=== PATIENT | male | born 1970 | race African-American/Black ===

== ENCOUNTER 2018-06-07 16:17 | Emergency (ER) | payer BC ==
[2018-06-07 17:44] LABS: Absolute Monocytes 0.6 K/uL (0.1-1.3); Absolute Neutrophil 5.8 K/uL (1.8-8.0); Basophils % 0.7 % (0-1.3); Eosinophils % 0.2 % (0-4.4); Hematocrit 45.9 % (39.6-49.0); Lymphocytes % 23.4 % (15.3-44.8); MPV 9.2 fL (7.6-11.3); Monocytes % 7.3 % (3.3-12.3); RBC Red Blood Cell Count 5.47 M/uL (4.33-5.43)
--- NOTE | 2018-06-07 17:51 | RAD REPORT ---
EXAM DESCRIPTION: CT - Stone Protocol - 06/07/2018 5:39 pm CLINICAL HISTORY: Left flank pain COMPARISON: None. TECHNIQUE: Axial 5 mm thick images were obtained without oral or IV contrast. The [id number] span s the entirety of the system partially obscuring uppermost abdomen and lung bases. All CT scans are performed using dose optimization technique as appropriate and may include automated exposure control or mA/KV adjustment according to patient size. FINDINGS: Mild left-sided hydronephrosis is present secondary to a 6 mm stone distal left ureter. St one is approximately 3- 4 cm from the UVJ. Stranding surrounds the left ureter. There is stranding an d edema in the left perinephric fat. No other calculi on the left. No right-sided stone or hydronephr osis. No suspicious renal masses. Isodense masses and pyelonephritis are not excluded on a stone prot ocol CT scan. No urinary bladder suspicious finding. No significant adrenal finding. Imaged portions of the liver, spleen and pancreas show no suspicious findings on non-contrast imaging . No gallbladder or biliary tree abnormality identified. No suspicious bowel findings. No hernia, mass or bulky lymphadenopathy noted. No free air, free fluid or inflammatory stranding. Disc and bony degenerative changes are present. IMPRESSION: Mild hydronephrosis on the left secondary to a 6 mm stone that is 3- 4 cm from the UVJ. Isodense masses and pyelonephritis are not excluded on stone protocol technique.
[2018-06-07 18:06] LABS: Urine Blood 3+ (NEG); Urine Glucose 2+ (NEG); Urine Protein 1+ (NEG); Urine Specific Gravity 1.015 (1.005-1.030); Urine pH 5.5 (5.0-7.0)
[2018-06-07 18:09] LABS: Albumin 3.3 g/dL (3.4-5.0); Bilirubin Direct 0.2 mg/dL (0-0.2); Bilirubin Total 0.7 mg/dL (0.2-1.0); Potassium 4.4 mmol/L (3.5-5.1); Protein, Total 8.6 g/dL (6.4-8.2)
[2018-06-07] MEDS ORDERED: KETOROLAC 30 MG/ML INJ ONE (18:11)
[2018-06-07] MEDS ORDERED: TAMSULOSIN 0.4 MG SR CAP ONE (18:11)
[2018-06-07] MEDS ORDERED: NA CHLORIDE 0.9% 500 ML ONE (18:12)
--- NOTE | 2018-06-07 19:01 | ER ---
Nurse's Notes [facility] Name: Duane Warren Age: 47 yrs Sex: Male : 1970 Arrival Date: 06/07/2018 Time: 16:19 Bed 18 Private MD: Diagnosis: Hyperglycemia, unspecified;Ureterolithiasis Presentation: 06/07 16:32 Presenting complaint: Left flank pain x 2 days. Also reports urinary frequency and hb difficulty urinating x 1 month. Transition of care: patient was not received from another setting of care. Onset of symptoms was June 06, 2018. Risk Assessment: Do you want to hurt yourself or someone else? Patient reports no desire to harm self or others. Care prior to arrival: None. 16:32 Method Of Arrival: Ambulatory hb 16:32 Acuity: JULIA 3 hb Historical: - Allergies: 16:34 No Known Allergies; hb - Home Meds: 16:34 None [Active]; hb - PMHx: 16:34 Hypertension; hb - PSHx: 16:34 None; hb - Immunization history:: Adult Immunizations up to date. - Social history:: Smoking status: Patient/guardian denies using tobacco. - Ebola Screening: : No symptoms or risks identified at this time. - Family history:: not pertinent. - Hospitalizations: : No recent hospitalization is reported. Screenin:38 Abuse screen: Denies threats or abuse. Nutritional screening: No deficits noted. em Tuberculosis screening: No symptoms or risk factors identified. Fall Risk None identified. Assessment: 17:30 General: Appears in no apparent distress. comfortable, Behavior is calm, cooperative, em Denies fever. Pain: Complains of pain in posterior aspect of left lateral abdomen Pain currently is 6 out of 10 on a pain scale. Neuro: Level of Consciousness is awake, alert, obeys commands, Oriented to person, place, time, situation. Respiratory: Airway is patent Respiratory effort is even, unlabored, Respiratory pattern is regular, symmetrical. GI: Abdomen is obese, Bowel sounds present X 4 quads. Abd is soft and non tender X 4 quads. Patient currently denies nausea, vomiting. : Urine is clear, Reports burning with urination, incontinence, urinary frequency. Derm: Skin is intact, is healthy with good turgor, Skin is pink, warm \T\ dry. normal. Musculoskeletal: Range of motion: intact in all extremities. 17:40 Reassessment: I agree with previous assessment. hb 18:59 Reassessment: Patient appears in no apparent distress at this time. Patient and/or em family updated on plan of care and expected duration. Pain level reassessed. Patient is alert, oriented x 3, equal unlabored respirations, skin warm/dry/pink. Patient states feeling better. Patient states symptoms have improved. Vital Signs: 16:33 BP 170 / 91; Pulse 88; Resp 16; Temp 99.4(O); Pulse Ox 100% on R/A; Pain 7/10; hb 18:07 BP 160 / 65; Pulse 104; Resp 18; Pulse Ox 100% on R/A; em 18:59 BP 155 / 90; Pulse 97; Resp 18; Pulse Ox 99% on R/A; em ED Course: 16:19 Patient arrived in ED. as 16:33 Triage completed. hb 16:34 Arm band placed on. hb 16:52 Antonio Doss LVN is Primary Nurse. em 17:12 Arnel Gonzalez MD is Attending Physician. rn 17:[address] via wheelchair. kw1 17:30 Initial lab(s) drawn, by me, sent to lab. Inserted saline lock: 20 gauge in right em antecubital area, using aseptic technique. Blood collected. 17:38 Patient has correct armband on for positive identification. Bed in low position. Call em light in reach. Adult w/ patient. Pulse ox on. NIBP on. 17:39 CT Stone Protocol In Process Unspecified. EDMS 19:00 Bonilla Hernandez MD is Referral Physician. rn 19:00 Matt Liz DO is Referral Physician. rn 19:15 No provider procedures requiring assistance completed. IV discontinued, intact, em bleeding controlled, No redness/swelling at site. Pressure dressing applied. Administered Medications: 18:11 Drug: NS 0.9% 500 ml Route: IV; Rate: bolus; Site: right antecubital; em 19:15 Follow up: IV Status: Completed infusion; IV Intake: 500ml em 18:11 Drug: Flomax 0.4 mg Route: PO; em 19:15 Follow up: Response: No adverse reaction; Pain is decreased em 18:13 Drug: TORadol 30 mg Route: IVP; Site: right antecubital; hb 19:15 Follow up: Response: No adverse reaction; Pain is decreased em Intake: 19:15 IV: 500ml; Total: 500ml. em Outcome: 19:00 Discharge ordered by . rn 19:15 Discharged to home ambulatory, with family. em 19:15 Condition: good 19:15 Discharge instructions given to patient, family, Instructed on discharge instructions, follow up and referral plans. medication usage, Demonstrated understanding of instructions, follow-up care, medications, Prescriptions given X 3. 19:16 Patient left the ED. em Signatures: Dispatcher [employer] EDAntonio Mari, LABEL REWINDER LABEL REWINDER Marie Leggett Roman, MD MD rn Baxter, Heather, RN RN hb Wilhelm, Kimberly kw1
--- NOTE | 2018-06-07 19:01 | EDPHYS ---
Physician Documentation [facility] Name: Duane Warren Age: 47 yrs Sex: Male : 1970 Arrival Date: 06/07/2018 Time: 16:19 Bed 18 Private MD: ED Physician Arnel Gonzalez HPI: 06/07 17:29 This 47 yrs old Black Male presents to ER via Ambulatory with complaints of Abdominal rn Pain, Urinary Problem. 17:29 The patient presents with abdominal pain left flank pain, began yesterday, also reports rn increased urination/urgency, no hematuria. NO fever. NO vomiting/diarrhea. no current abd pain. Onset: The symptoms/episode began/occurred yesterday. The symptoms do not radiate. Associated signs and symptoms: Pertinent positives: dysuria, Pertinent negatives: blood in stools, fever, hematuria, shortness of breath, testicular pain, vomiting, vomiting blood. Severity of pain: At its worst the pain was mild in the emergency department the pain is unchanged. The patient has not experienced similar symptoms in the past. The patient has not recently seen a physician. Historical: - Allergies: 16:34 No Known Allergies; hb - Home Meds: 16:34 None [Active]; hb - PMHx: 16:34 Hypertension; hb - PSHx: 16:34 None; hb - Immunization history:: Adult Immunizations up to date. - Social history:: Smoking status: Patient/guardian denies using tobacco. - Ebola Screening: : No symptoms or risks identified at this time. - Family history:: not pertinent. - Hospitalizations: : No recent hospitalization is reported. ROS: 17:29 Constitutional: Negative for fever, chills, and weight loss, Eyes: Negative for injury, rn pain, redness, and discharge, Neck: Negative for injury, pain, and swelling, Cardiovascular: Negative for chest pain, palpitations, and edema, Respiratory: Negative for shortness of breath, cough, wheezing, and pleuritic chest pain, Abdomen/GI: + left flank pain : + increased frequency and dysuria MS/Extremity: Negative for injury and deformity, Skin: Negative for injury, rash, and discoloration, Neuro: Negative for headache, weakness, numbness, tingling, and seizure. Exam: 17:29 Constitutional: Overweight male, no acute distress Head/Face: Normocephalic, rn atraumatic. ENT: MMM Abdomen/GI: soft, non-tender Back: No spinal tenderness. No costovertebral tenderness. Full range of motion. Skin: Warm, dry with normal turgor. Normal color with no rashes, no lesions, and no evidence of cellulitis. MS/ Extremity: Pulses equal, no cyanosis. Neurovascular intact. Full, normal range of motion. Equal circumference. Neuro: Awake and alert, GCS 15, oriented to person, place, time, and situation. Cranial nerves II-XII grossly intact. Motor strength 5/5 in all extremities. Sensory grossly intact. Cerebellar exam normal. Normal gait. Vital Signs: 16:33 BP 170 / 91; Pulse 88; Resp 16; Temp 99.4(O); Pulse Ox 100% on R/A; Pain 7/10; hb 18:07 BP 160 / 65; Pulse 104; Resp 18; Pulse Ox 100% on R/A; em 18:59 BP 155 / 90; Pulse 97; Resp 18; Pulse Ox 99% on R/A; em MDM: 17:12 Patient medically screened. rn 18:57 Differential diagnosis: Ureterolithiasis, urinary tract infection. Data reviewed: vital rn signs, nurses notes, lab test result(s), radiologic studies, CT scan, and as a result, I will discharge patient. Counseling: I had a detailed discussion with the patient and/or guardian regarding: the historical points, exam findings, and any diagnostic results supporting the discharge/admit diagnosis, lab results, radiology results, the need for outpatient follow up, to return to the emergency department if symptoms worsen or persist or if there are any questions or concerns that arise at home. Special discussion: I discussed with the patient/guardian in detail that at this point there is no indication for admission to the hospital. It is understood, however, that if the symptoms persist or worsen the patient needs to return immediately for re-evaluation. Based on the history and exam findings, there is no indication for further emergent testing or inpatient evaluation. I discussed with the patient/guardian the need to see the primary care provider for further evaluation of the symptoms. I discussed with the patient/guardian the need to see the urologist for further evaluation of the symptoms. 18:59 ED course: Pt asymptomatic, will dc home with flomax, pain meds, continuation of bp rn meds, and needs pcp f/u for likely diabetic management and renal management.. 06/07 17:25 Order name: Basic Metabolic Panel; Complete Time: 18:13 rn 06/07 17:25 Order name: CBC with Diff; Complete Time: 17:54 rn 06/07 17:25 Order name: Hepatic Function; Complete Time: 18:13 rn 06/07 17:25 Order name: Lipase; Complete Time: 18:13 rn 06/07 17:25 Order name: Urine Microscopic Only rn 06/07 17:59 Order name: Urine Dipstick--Ancillary (enter results); Complete Time: 18:13 eb 06/07 17:25 Order name: IV Start; Complete Time: 17:38 rn 06/07 17:25 Order name: Labs collected and sent; Complete Time: 17:38 rn 06/07 17:25 Order name: Urine Dipstick-Ancillary (obtain specimen); Complete Time: 17:54 rn 06/07 17:25 Order name: CT Stone Protocol; Complete Time: 17:54 rn Administered Medications: 18:11 Drug: NS 0.9% 500 ml Route: IV; Rate: bolus; Site: right antecubital; em 19:15 Follow up: IV Status: Completed infusion; IV Intake: 500ml em 18:11 Drug: Flomax 0.4 mg Route: PO; em 19:15 Follow up: Response: No adverse reaction; Pain is decreased em 18:13 Drug: TORadol 30 mg Route: IVP; Site: right antecubital; hb 19:15 Follow up: Response: No adverse reaction; Pain is decreased em Disposition: 06/07/18 19:00 Discharged to Home. Impression: Hyperglycemia, unspecified, Ureterolithiasis. - Condition is Stable. - Discharge Instructions: Hyperglycemia, Kidney Stones. - Prescriptions for Flomax 0.4 mg Oral Capsule, Sust. Release 24 hr - take 1 capsule by ORAL route once daily 1/2 hour following the same meal each day; 30 capsule. Tylenol- Codeine #3 300-30 mg Oral Tablet - take 1 tablet by ORAL route every 6 hours As needed; 20 tablet. Metformin 500 mg Oral Tablet Sustained Release 24 hr - take 1 tablet by ORAL route once daily with evening meal; 30 tablet. - Medication Reconciliation Form, Thank You Letter, Antibiotic Education, Prescription Opioid Use form. - Follow up: Bonilla Hernandez; When: As needed; Reason: Recheck today's complaints, Re-evaluation by your physician. Follow up: Matt Liz DO; When: As needed; Reason: Recheck today's complaints, Re-evaluation by your physician. - Problem is new. - Symptoms have improved. Signatures: Dispatcher [employer] EDAntonio Mari, LEAD VULCANIZING OPERATOR LEAD VULCANIZING OPERATOR em Arnel Gonzalez MD MD rn Baxter, Heather, RN RN Corrections: (The following items were deleted from the chart) 19:16 19:00 06/07/2018 19:00 Discharged to Home. Impression: Hyperglycemia, unspecified; em Ureterolithiasis. Condition is Stable. Discharge Instructions: Hyperglycemia. Prescriptions for Flomax 0.4 mg Oral Capsule, Sust. Release 24 hr - take 1 capsule by ORAL route once daily 1/2 hour following the same meal each day; 30 capsule. and Forms are Medication Reconciliation Form, Thank You Letter, Antibiotic Education, Prescription Opioid Use. Follow up: Bonilla Hernandez; When: As needed; Reason: Recheck today's complaints, Re-evaluation by your physician. Follow up: Matt Liz; When: As needed; Reason: Recheck today's complaints, Re-evaluation by your physician. Problem is new. Symptoms have improved. rn
[2018-06-07 19:18] LABS: Urine Bacteria <20 /HPF (NONE SEEN); Urine RBC 20-50 /HPF (NONE SEEN)
[2018-06-07 19:19] LABS: Urine Culture Reflex Order NOT NEEDED
== END 2018-06-07 19:16 | disposition home or self-care (01) ==
LOC: ER 16:17
DX: N20.1 Calculus of ureter (principal); I10 Essential (primary) hypertension
CPT/HCPCS: 36415; 74176; 76377; 80048; 80076; 81003; 81015; 83690; 85025; 96361; 96374; 99284

== ENCOUNTER 2018-06-21 16:26 | Emergency (ER) | payer BC ==
--- OUTSIDE RECORDS SUMMARY | 2018-06-21 16:29 | XMS REPORT | Clinical Summary ---
:1970 Author Organization [facility] Address [address] [place] [address] Care Team Providers Name Role Phone Kacy Han Primary Care Provider Allergies No Known Allergies Medications Medication Sig Dispensed Refills Start Date End Date Status ondansetron (ZOFRAN) Take 1 tablet (4 20 tablet 0 06/12/2018 06/17/2018 4 MG tablet mg total) by mouth every 6 (six) hours for 5 days. traMADol (ULTRAM) 50 Take 1 tablet (50 14 tablet 0 06/12/2018 06/15/2018 mg tablet mg total) by mouth every 6 (six) hours as needed for moderate pain for up to 3 days. sulfamethoxazole-tri Take 1 tablet by 14 tablet 0 06/12/2018 06/19/2018 methoprim (BACTRIM mouth 2 (two) DS) 800-160 mg per times a day for 7 tablet days. smx-tmp DS (BACTRIM) 800-160 mg tabs (1tab q12 D10) Active Problems Not on file Encounters Date Type Specialty Care Team Description 06/12/2018 Emergency Emergency Medicine Rina Rubio (Primary Dx); MD Den Renal insufficiency; Urinary tract infection without hematuria, site unspecified; Ureterolithiasis after 06/20/2017 Social History Tobacco Use Types Packs/Day Years Used Date Never Smoker Smokeless Tobacco: Never Used Alcohol Use Drinks/Week oz/Week Comments Yes occasional Sex Assigned at Date Recorded Not on file Job Start Date Occupation Industry Not on file Not on file Not on file Travel History Travel Start Travel End No recent travel history available. Last Filed Vital Signs Vital Sign Reading Time Taken Blood Pressure 121/56 06/12/2018 5:59 PM [employer] Pulse 95 06/12/2018 5:59 PM [employer] Temperature 37.2 C (98.9 F) 06/12/2018 1:04 PM [employer] Respiratory Rate 20 06/12/2018 5:59 PM [employer] Oxygen Saturation 98% 06/12/2018 5:59 PM [employer] Inhaled Oxygen Concentration - - Weight - - Height 177.8 cm (5' 10") 06/12/2018 1:03 PM [employer] Body Mass Index - - Plan of Treatment Health Maintenance Due Date Last Done Comments INFLUENZA VACCINE 12/11/2017 Procedures Procedure Name Priority Date/Time Associated Comments Diagnosis POC GLUCOSE Routine 06/12/2018 5:09 Results for this PM [employer] procedure are in the results section. ECG 12-LEAD STAT 06/12/2018 4:25 Results for this PM [employer] procedure are in the results section. POC GLUCOSE Routine 06/12/2018 3:43 Results for this PM [employer] procedure are in the results section. CT RENAL STONE PROTOCOL STAT 06/12/2018 3:02 Results for this PM [employer] procedure are in the results section. GRAM STAIN STAT 06/12/2018 2:01 Results for this PM [employer] procedure are in the results section. URINE CULTURE STAT 06/12/2018 2:01 Results for this PM [employer] procedure are in the results section. ARTERIAL BLOOD GAS STAT 06/12/2018 1:45 Results for this PM [employer] procedure are in the results section. ESTIMATED GFR STAT 06/12/2018 1:30 Results for this PM [employer] procedure are in the results section. URINALYSIS SCREEN AND STAT 06/12/2018 1:30 Results for this MICROSCOPY, WITH REFLEX PM [employer] procedure are in TO CULTURE the results section. COMPREHENSIVE METABOLIC STAT 06/12/2018 1:30 Results for this PANEL PM [employer] procedure are in the results section. PROTHROMBIN TIME WITH STAT 06/12/2018 1:30 Results for this INR PM [employer] procedure are in the results section. HC COMPLETE BLD COUNT STAT 06/12/2018 1:30 Results for this W/AUTO DIFF PM [employer] procedure are in the results section. ECG ED PRELIMINARY Routine 06/12/2018 1:20 Results for this INTERPRETATION PM [employer] procedure are in the results section. POC GLUCOSE Routine 06/12/2018 1:06 Results for this PM [employer] procedure are in the results section. after 06/20/2017 Results POC glucose (06/12/2018 5:09 PM [employer])Only the most recent of3 resultswithin the time period is included. POC glucose 259 (H) 65 - 99 mg/dL [facility] Comment: HOSPITAL RN Notified Meter ID: [id number] Cabin Equipment Supervisor: Kandy Hernandez Jhoana Performing Organization Address City/State/Zipcode Phone Number [facility] DEPARTMENT OF PATHOLOGY [address] [place] [address] AND GENOMIC MEDICINE [facility] [address] [place] [address] HOSPITAL ECG 12 lead (06/12/2018 4:25 PM [employer]) Ventricular rate 93 [facility] Atrial rate 93 [facility] [place] interval 198 [facility] QRSD interval 70 [facility] QT interval 322 [facility] QTC interval 400 [facility] P axis 1 41 [facility] QRS axis 1 61 [facility] T wave axis 5 [facility] EKG impression Demand pacemaker, interpretation is based on [facility] MUSE intrinsic rhythm-Sinus rhythm-No previous ECGs available- Narrative Performed At Performing Organization Address City/[facility]/Zipcode Phone Number [facility] MUSE [address] [place] [address] CT Renal Stone Protocol (06/12/2018 3:02 PM [employer]) Narrative Performed At EXAMINATION:CT RENAL STONE PROTOCOL [facility] CLINICAL HISTORY:left flank pain TECHNIQUE: Multiple axial images of the abdomen and pelvis were obtained without intravenous administration of iodinated contrast. Sagittal and coronal computerized reformatted images were also obtained. The lack of intravenous contrast reduces the sensitivity of detecting solid organ disease. CT imaging was performed with iterative reconstruction techniques and/or automated exposure control to reduce radiation dose. COMPARISON:None. FINDINGS: The liver is of diffuse decreased attenuation consistent with hepatic steatosis. Small hiatal hernia is present. 3 mm distal ureterolith is present at the left ureterovesicular junction resulting in asymmetric prominence of the left ureter throughout its course. Remainder of the limited noncontrast evaluation of the lung bases, liver, stomach, pancreas, adrenals, kidneys, spleen, gallbladder, GI tract, bony and soft tissue structures is unremarkable, apart from degenerative changes of the spine. IMPRESSION: 3 mm urolith at the left UVJ. [facility]-[id number] Procedure Note Hm Interface, Radiology Results Incoming - 06/12/2018 3:13 PM [employer] EXAMINATION: CT RENAL STONE PROTOCOL CLINICAL HISTORY: left flank pain TECHNIQUE: Multiple axial images of the abdomen and pelvis were obtained without intravenous administration of iodinated contrast. Sagittal and coronal computerized reformatted images were also obtained. The lack of intravenous contrast reduces the sensitivity of detecting solid organ disease. CT imaging was performed with iterative reconstruction techniques and/or automated exposure control to reduce radiation dose. COMPARISON: None. FINDINGS: The liver is of diffuse decreased attenuation consistent with hepatic steatosis. Small hiatal hernia is present. 3 mm distal ureterolith is present at the left ureterovesicular junction resulting in asymmetric prominence of the left ureter throughout its course. Remainder of the limited noncontrast evaluation of the lung bases, liver, stomach, pancreas, adrenals, kidneys, spleen, gallbladder, GI tract, bony and soft tissue structures is unremarkable, apart from degenerative changes of the spine. IMPRESSION: 3 mm urolith at the left UVJ. [facility]-[id number] Performing Organization Address City/[facility]/Zipcode Phone Number [facility] [address] [place] [address] Gram stain (06/12/2018 2:01 PM [employer]) Gram stain result Rare WBC's [facility] No organisms seen Comment: Specimen Information Specimen Source: Urine Specimen Site: Clean catch Specimen Urine Performing Organization Address [facility] Phone Number [facility] DEPARTMENT OF PATHOLOGY AND [address] [place] [phone] Urine culture (06/12/2018 2:01 PM [employer]) Urine culture isolate No growth after [address] [facility] Comment: Specimen Information Specimen Source: Urine Specimen Site: Clean catch Specimen Urine Performing Organization Address [facility]/Zipcode Phone Number [facility] DEPARTMENT OF PATHOLOGY AND [address] [place] [id number] Arterial blood gas (06/12/2018 1:45 PM [employer]) pH, arterial 7.41 7.35 - 7.45 [facility] pCO2, arterial 37 35 - 45 mmHg [facility] pO2, arterial 93 (H) 80 - 90 mmHg [facility] Bicarbonate, arterial 22.9 21.0 - 28.0 mmol/L [facility] Base excess, arterial -1 -2 - 2 mEq/L [facility] O2 saturation, arterial 95 95 - 100 % [facility] Specimen Blood Performing Organization Address City/[facility]/Zipcode Phone Number [facility] DEPARTMENT OF PATHOLOGY [address] [place] [address] Urinalysis screen and microscopy, with reflex to culture (06/12/2018 1:30 PM [employer]) Specimen site Clean catch [facility] Color, UA Yellow [facility] Appearance, UA Clear [facility] Specific gravity, UA 1.023 1.001 - 1.030 [facility] pH, UA 5.0 5.0 - 9.0 [facility] Protein, UA Negative Negative [facility] Glucose, UA 3+ (A) Negative [facility] Ketones, UA Trace (A) Negative [facility] Bilirubin, UA Negative Negative [facility] Blood, UA Small (A) Negative [facility] Nitrite, UA Negative Negative [facility] Urobilinogen, UA <2.0 <2.0 E.U./dL [facility] Leukocyte esterase, UA Negative Negative [facility] WBC, UA 5 (H) 0 - 1 /HPF [facility] RBC, UA 3 0 - 5 /HPF [facility] Bacteria, UA Few None seen [facility] Yeast, UA None seen [facility] Yeast with pseudohyphae, UA None seen [facility] Specimen Urine Performing Organization Address City/[facility]/Zipcode Phone Number [facility] DEPARTMENT OF PATHOLOGY [address] [place] [address] Estimated GFR (06/12/2018 1:30 PM [employer]) Estimated GFR 39 (A) mL/min/1.73 m2 [facility] Comment: [facility] CatergoryUnitsInterpretation G1 >=90 Normal or high G2 60-89Mildly decreased [id number] to moderately decreased [id number] to severely decreased G4 15-29Severely decreased G5 <15Kidney failure The eGFR was calculated using the Chronic Kidney Disease Epidemiology Collaboration (CKD-EPI) equation. Interpretation is based on recommendations of the National Kidney Foundation-Kidney Disease Outcomes Quality Initiative (NKF-KDOQI) published in 2014. Specimen Plasma specimen Performing Organization Address City/[facility]/Zipcode Phone Number [facility] DEPARTMENT OF PATHOLOGY [id number] [place] [address] Prothrombin time with INR (06/12/2018 1:30 PM [employer]) Prothrombin time 13.7 11.5 - 14.5 sec [facility] INR 1.1 [facility] Comment: [facility] The International Normalized Ratio (INR) is a therapeutic monitoring tool for patients who are stable on oral anticoagulant therapy. An INR of 2.0-3.0 is suggested for deep vein thrombosis/pulmonary embolism. Specimen Blood Performing Organization Address [facility] Phone Number [facility] DEPARTMENT OF PATHOLOGY [id number] [place] [address] CBC with platelet and differential (06/12/2018 1:30 PM [employer]) WBC 7.1 4.5 - 11.0 k/uL [facility] RBC 5.26 4.40 - 6.00 m/uL [facility] HGB 14.4 14.0 - 18.0 g/dL [facility] HCT 44.9 41.0 - 51.0 % [facility] MCV 85.4 82.0 - 100.0 fL [facility] MCH 27.4 27.0 - 34.0 pg [facility] MCHC 32.1 31.0 - 37.0 g/dL [facility] RDW - SD 39.2 37.0 - 55.0 fL [facility] MPV 10.7 6.9 - 11.0 fL [facility] Platelet count 269 150 - 400 K/uL [facility] Nucleated RBC 0.00 /100 WBC [facility] Neutrophils 56.5 39.0 - 69.0 % [facility] Lymphocytes 34.1 25.0 - 45.0 % [facility] Monocytes 8.7 0.0 - 10.0 % [facility] Eosinophils 0.3 0.0 - 5.0 % [facility] Basophils 0.3 0.0 - 1.0 % [facility] Immature granulocytes 0.1 0.0 - 1.0 % [facility] Specimen Blood Performing Organization Address City/State/Zipcode Phone Number [facility] DEPARTMENT OF PATHOLOGY [address] [place] [address] AND GENOMIC MEDICINE [facility] [address] Comprehensive metabolic panel (06/12/2018 1:30 PM [employer]) Sodium 130 (L) 135 - 148 mEq/L [facility] Potassium 4.8 3.5 - 5.0 mEq/L [facility] Chloride 92 (L) 98 - 112 mEq/L [facility] CO2 27 24 - 31 mEq/L [facility] Anion gap 11@ANIO 7 - 15 mEq/L [facility] BUN 30 (H) 6 - 20 mg/dL [facility] Creatinine 2.26 (H) 0.70 - 1.20 mg/dL [facility] Glucose 431 (HH)Comment: Called 65 - 99 mg/dL [facility] result with readback to [facility] Mary Gaitan/DAMIEN 06/12/2018 14:12 Calcium 9.5 8.3 - 10.2 mg/dL [facility] Protein 8.4 (H) 6.3 - 8.3 g/dL [facility] Albumin 3.7 3.5 - 5.0 g/dL [facility] A/G ratio 0.8 0.7 - 3.8 [facility] Alkaline phosphatase 81 40 - 129 U/L [facility] AST 15 10 - 50 U/L [facility] ALT 14 5 - 50 U/L [facility] Total bilirubin 0.6 0.2 - 1.2 mg/dL [facility] Specimen Plasma specimen Performing Organization Address City/State/Zipcode Phone Number [facility] DEPARTMENT OF PATHOLOGY [address] [place] [address] AND GENOMIC MEDICINE [facility] [address] ECG ED Preliminary Interpretation - Not an Order (06/12/2018 1:20 PM [employer]) Narrative Performed At Den Rubio MD 06/12/20188:50 PM ECG ED Preliminary Interpretation - Not an Order Performed by: Den Rubio MD Authorized by: Den Rubio MD ECG reviewed by ED Physician in the absence of a clinical microbiologist: yes Previous ECG: Previous ECG:Unavailable Interpretation: Interpretation: non-specific Rate: ECG rate:93 ECG rate assessment: normal Rhythm: Rhythm: sinus rhythm Ectopy: Ectopy: none QRS: QRS axis:Normal QRS intervals:Normal Conduction: Conduction: abnormal ST segments: ST segments:Non-specific T waves: T waves: non-specific and inverted Inverted:III and aVF Comments: Normal sinus rhythm, nonspecific ST-T changes after 06/20/2017 Insurance Payer Benefit Plan / Group Subscriber ID Type Phone Address BCBS BCBS CHOICE PPO/[employer] PPO xxxxxxxxxxxx PPO (Home) [place] [address] Advance Directives Patient has advance care planning documents on file. For more information, please contact:[facility] [place] [address]
--- NOTE | 2018-06-21 16:55 | EDPHYS ---
Physician Documentation [facility] Name: Duane Warren Age: 47 yrs Sex: Male : 1970 Arrival Date: 06/21/2018 Time: 16:32 Bed 6 Private MD: JORGE SEE ED Physician Arnel Gonzalez HPI: 06/21 16:59 This 47 yrs old Black Male presents to ER via Wheelchair with complaints of Foot Pain. snw 16:59 The patient presents with decreased range of motion, pain. The complaints affect the snw left Achilles. Context: The problem was sustained at home, resulted from an unknown cause, the patient can partially bear weight, the patient is able to ambulate. Onset: The symptoms/episode began/occurred suddenly. Modifying factors: The symptoms are alleviated by nothing. Associated signs and symptoms: The patient has no apparent associated signs or symptoms. Severity of symptoms: At their worst the symptoms were moderate. The patient has not experienced similar symptoms in the past. The patient has been recently seen by a physician: with different complaint(s), and apparently was diagnosed with NIDDM, kidney stones. Historical: - Allergies: 16:42 No Known Allergies; la1 - PMHx: 16:42 Hypertension; Diabetes - NIDDM; la1 - Immunization history:: Adult Immunizations up to date. - Social history:: Smoking status: Patient/guardian denies using tobacco. - Ebola Screening: : No symptoms or risks identified at this time. ROS: 16:56 Constitutional: Negative for fever, chills, and weight loss, Eyes: Negative for injury, snw pain, redness, and discharge, ENT: Negative for injury, pain, and discharge, Neck: Negative for injury, pain, and swelling, Cardiovascular: Negative for chest pain, palpitations, and edema, Respiratory: Negative for shortness of breath, cough, wheezing, and pleuritic chest pain, Abdomen/GI: Negative for abdominal pain, nausea, vomiting, diarrhea, and constipation, Back: Negative for injury and pain, : Negative for injury, bleeding, discharge, and swelling, MS/Extremity: Negative for injury and deformity, + severe pain to back of left ankle/foot Skin: Negative for injury, rash, and discoloration, Neuro: Negative for headache, weakness, numbness, tingling, and seizure. Exam: 16:56 Constitutional: This is a well developed, well nourished patient who is awake, alert, snw and in no acute distress. Head/Face: Normocephalic, atraumatic. Eyes: Pupils equal round and reactive to light, extra-ocular motions intact. Lids and lashes normal. Conjunctiva and sclera are non-icteric and not injected. Cornea within normal limits. Periorbital areas with no swelling, redness, or edema. ENT: Nares patent. No nasal discharge, no septal abnormalities noted. Tympanic membranes are normal and external auditory canals are clear. Oropharynx with no redness, swelling, or masses, exudates, or evidence of obstruction, uvula midline. Mucous membranes moist. Neck: Trachea midline, no thyromegaly or masses palpated, and no cervical lymphadenopathy. Supple, full range of motion without nuchal rigidity, or vertebral point tenderness. No Meningismus. Chest/axilla: Normal chest wall appearance and motion. Nontender with no deformity. No lesions are appreciated. Cardiovascular: Regular rate and rhythm with a normal S1 and S2. No gallops, murmurs, or rubs. Normal PMI, no JVD. No pulse deficits. Respiratory: Lungs have equal breath sounds bilaterally, clear to auscultation and percussion. No rales, rhonchi or wheezes noted. No increased work of breathing, no retractions or nasal flaring. Abdomen/GI: Soft, non-tender, with normal bowel sounds. No distension or tympany. No guarding or rebound. No evidence of tenderness throughout. Back: No spinal tenderness. No costovertebral tenderness. Full range of motion. Skin: Warm, dry with normal turgor. Normal color with no rashes, no lesions, and no evidence of cellulitis. Neuro: Awake and alert, GCS 15, oriented to person, place, time, and situation. Cranial nerves II-XII grossly intact. Motor strength 5/5 in all extremities. Sensory grossly intact. Cerebellar exam normal. Normal gait. Psych: Awake, alert, with orientation to person, place and time. Behavior, mood, and affect are within normal limits. 16:56 Musculoskeletal/extremity: Extremities: grossly normal except: noted in the left Achilles: decreased ROM, swelling, tenderness, ROM: limited active range of motion due to pain, Circulation is intact in all extremities. Severe pain noted. Compartment Syndrome exam of affected extremity: is normal. no numbness, no sensation deficit, no palor, no weak pulses. Vital Signs: 16:42 BP 119 / 50; Pulse 99; Resp 18; Temp 97.4; Pulse Ox 97% on R/A; Weight 158.76 kg; la1 Height 5 ft. 10 in. (177.80 cm); Pain 10/10; 16:42 Body Mass Index 50.22 (158.76 kg, 177.80 cm) la1 MDM: 16:46 Patient medically screened. snw 16:58 Data reviewed: nurses notes. Data interpreted: Pulse oximetry: on room air is 97 %. snw Interpretation: normal. Counseling: I had a detailed discussion with the patient and/or guardian regarding: the historical points, exam findings, and any diagnostic results supporting the discharge/admit diagnosis, the need for outpatient follow up, to return to the emergency department if symptoms worsen or persist or if there are any questions or concerns that arise at home. Special discussion: Based on the history and exam findings, there is no indication for further emergent testing or inpatient evaluation. I discussed with the patient/guardian the need to see the primary care provider for further evaluation of the symptoms. ED course: Pt had blood work drawn last week. Pt has appt with PCP in 3 days to get lab results and will f/u on the pain in his ankle/foot. 06/21 16:53 Order name: Walking boot; Complete Time: 17:03 snw Administered Medications: 17:04 Drug: TORadol 60 mg Route: IM; Site: right deltoid; sv 17:20 Follow up: Response: No adverse reaction sv Disposition: 17:27 Co-signature as Attending Physician, Arnel Gonzalez MD. rn Disposition: 06/21/18 16:54 Discharged to Home. Impression: Pain in ankle and joints of foot. - Condition is Stable. - Discharge Instructions: Diabetes and Foot Care, Gout, Diabetes and Exercise, Diabetes Mellitus and Food, Low-Purine Diet, Ankle Pain. - Prescriptions for Colchicine- Probenecid 0.5-500 mg Oral Tablet - take 1 tablet by ORAL route every 1 hour up to 3 hours; 3 tablet. - Work release form, Medication Reconciliation Form, Thank You Letter, Antibiotic Education, Prescription Opioid Use form. - Follow up: Private Physician; When: as scheduled; Reason: Recheck today's complaints, Continuance of care, Re-evaluation by your physician. Follow up: Emergency Department; When: As needed; Reason: Worsening of condition. Signatures: Falguni Vazquez RN RN sv Therrien, Shelly, CLINICAL TRAINER-C CLINICAL TRAINER-Csnw Arnel Gonzalez MD MD rn Attema, Lee, RN RN la1 Corrections: (The following items were deleted from the chart) 17:23 16:54 06/21/2018 16:54 Discharged to Home. Impression: Pain in ankle and joints of sv foot. Condition is Stable. Forms are Medication Reconciliation Form, Thank You Letter, Antibiotic Education, Prescription Opioid Use. Follow up: Private Physician; When: as scheduled; Reason: Recheck today's complaints, Continuance of care, Re-evaluation by your physician. Follow up: Emergency Department; When: As needed; Reason: Worsening of condition. snw
--- NOTE | 2018-06-21 16:55 | ER ---
Nurse's Notes [facility] Name: Duane Warren Age: 47 yrs Sex: Male : 1970 Arrival Date: 06/21/2018 Time: 16:32 Bed 6 Private MD: JORGE SEE Diagnosis: Pain in ankle and joints of foot Presentation: 06/21 16:38 Presenting complaint: Patient states: I have been having left foot tingling and pain la1 since and I was recently dx with diabetes. Transition of care: patient was not received from another setting of care. Onset of symptoms was June 21, 2018. Risk Assessment: Do you want to hurt yourself or someone else? Patient reports no desire to harm self or others. Initial Sepsis Screen: Does the patient meet any 2 criteria? No. Patient's initial sepsis screen is negative. Does the patient have a suspected source of infection? No. Patient's initial sepsis screen is negative. Care prior to arrival: None. 16:38 Method Of Arrival: Wheelchair la1 16:38 Acuity: JULIA 3 la1 Historical: - Allergies: 16:42 No Known Allergies; la1 - PMHx: 16:42 Hypertension; Diabetes - NIDDM; la1 - Immunization history:: Adult Immunizations up to date. - Social history:: Smoking status: Patient/guardian denies using tobacco. - Ebola Screening: : No symptoms or risks identified at this time. Screenin:47 Abuse screen: Denies threats or abuse. Denies injuries from another. Nutritional sv screening: No deficits noted. Tuberculosis screening: No symptoms or risk factors identified. Fall Risk None identified. Assessment: 16:55 General: Appears in no apparent distress. uncomfortable, obese, Behavior is calm, sv cooperative, appropriate for age. Pain: Complains of pain in left heel Pain currently is 10 out of 10 on a pain scale. Neuro: Level of Consciousness is awake, alert, obeys commands, Oriented to person, place, time, situation, Gait is steady. Respiratory: Respiratory effort is even, unlabored, Respiratory pattern is regular, symmetrical. Derm: Skin is pink, warm \T\ dry. 17:19 Reassessment: Patient appears in no apparent distress at this time. Patient and/or sv family updated on plan of care and expected duration. Pain level reassessed. Patient is alert, oriented x 3, equal unlabored respirations, skin warm/dry/pink. Vital Signs: 16:42 BP 119 / 50; Pulse 99; Resp 18; Temp 97.4; Pulse Ox 97% on R/A; Weight 158.76 kg; la1 Height 5 ft. 10 in. (177.80 cm); Pain 10/10; 16:42 Body Mass Index 50.22 (158.76 kg, 177.80 cm) la1 ED Course: 16:32 Patient arrived in ED. sb2 16:32 JORGE SEE is Private Physician. sb2 16:39 Joan Canseco FNP-C is [facility]. snw 16:39 Arnel Gonzalez MD is Attending Physician. snw 16:42 Triage completed. la1 16:42 Arm band placed on left wrist. la1 16:47 Falguni Vazquez, TANYA is Primary Nurse. sv 16:47 Patient has correct armband on for positive identification. Bed in low position. Adult sv w/ patient. 17:03 Walking boot to the left foot. sv 17:19 No provider procedures requiring assistance completed. Patient did not have IV access sv during this emergency room visit. Administered Medications: 17:04 Drug: TORadol 60 mg Route: IM; Site: right deltoid; sv 17:20 Follow up: Response: No adverse reaction sv Outcome: 16:54 Discharge ordered by . snw 17:19 Discharged to home ambulatory, with family, with walking boot sv 17:19 Condition: stable 17:19 Discharge instructions given to patient, family, Instructed on discharge instructions, follow up and referral plans. medication usage, walking boot application Demonstrated understanding of instructions, follow-up care, medications, walking boot Prescriptions given X 1. 17:23 Patient left the ED. sv Signatures: Falguni Vazquez, TANYA RN sv Joan Canseco FNP-C FNP-CsnEbenezer Dove RN RN la1 Maritza Tidwell sb2 Corrections: (The following items were deleted from the chart) 16:44 16:38 Acuity: JULIA 4 la1 la1
[2018-06-21] MEDS ORDERED: KETOROLAC 30 MG/ML INJ ONE (17:06)
== END 2018-06-21 17:23 | disposition home or self-care (01) ==
LOC: ER 16:26
DX: M25.572 Pain in left ankle and joints of left foot (principal)
CPT/HCPCS: 96372; 99283

== ENCOUNTER 2018-07-13 11:09 | Emergency (ER) | payer BC ==
--- OUTSIDE RECORDS SUMMARY | 2018-07-13 11:12 | XMS REPORT | Clinical Summary ---
:1970 Author Organization [facility] Address [address] [place] [address] Care Team Providers Name Role Phone Kacy [...] infection without hematuria, site unspecified; Ureterolithiasis after 07/12/2017 Social History Tobacco Use Types Packs/Day Years [...] Taken Blood Pressure 121/56 06/12/2018 5:59 PM FIELD TAX AUDITOR Pulse 95 06/12/2018 5:59 PM FIELD TAX AUDITOR Temperature 37.2 C (98.9 F) 06/12/2018 1:04 PM FIELD TAX AUDITOR Respiratory Rate 20 06/12/2018 5:59 PM FIELD TAX AUDITOR Oxygen Saturation 98% 06/12/2018 5:59 PM FIELD TAX AUDITOR Inhaled Oxygen Concentration - - Weight - - Height 177.8 cm (5' 10") 06/12/2018 1:03 PM FIELD TAX AUDITOR Body Mass Index - - Plan of Treatment Health Maintenance Due Date Last Done Comments INFLUENZA VACCINE 12/11/2017 Procedures Procedure Name Priority Date/Time Associated Comments Diagnosis POC GLUCOSE Routine 06/12/2018 5:09 Results for this PM FIELD TAX AUDITOR procedure are in the results section. ECG 12-LEAD STAT 06/12/2018 4:25 Results for this PM FIELD TAX AUDITOR procedure are in the results section. POC GLUCOSE Routine 06/12/2018 3:43 Results for this PM FIELD TAX AUDITOR procedure are in the results section. CT RENAL STONE PROTOCOL STAT 06/12/2018 3:02 Results for this PM FIELD TAX AUDITOR procedure are in the results section. GRAM STAIN STAT 06/12/2018 2:01 Results for this PM FIELD TAX AUDITOR procedure are in the results section. URINE CULTURE STAT 06/12/2018 2:01 Results for this PM FIELD TAX AUDITOR procedure are in the results section. ARTERIAL BLOOD GAS STAT 06/12/2018 1:45 Results for this PM FIELD TAX AUDITOR procedure are in the results section. ESTIMATED GFR STAT 06/12/2018 1:30 Results for this PM FIELD TAX AUDITOR procedure are in the results section. URINALYSIS SCREEN AND STAT 06/12/2018 1:30 Results for this MICROSCOPY, WITH REFLEX PM FIELD TAX AUDITOR procedure are in TO CULTURE the results section. COMPREHENSIVE METABOLIC STAT 06/12/2018 1:30 Results for this PANEL PM FIELD TAX AUDITOR procedure are in the results section. PROTHROMBIN TIME WITH STAT 06/12/2018 1:30 Results for this INR PM FIELD TAX AUDITOR procedure are in the results section. HC COMPLETE BLD COUNT STAT 06/12/2018 1:30 Results for this W/AUTO DIFF PM FIELD TAX AUDITOR procedure are in the results section. ECG ED PRELIMINARY Routine 06/12/2018 1:20 Results for this INTERPRETATION PM FIELD TAX AUDITOR procedure are in the results section. POC GLUCOSE Routine 06/12/2018 1:06 Results for this PM FIELD TAX AUDITOR procedure are in the results section. after 07/12/2017 Results POC glucose (06/12/2018 5:09 PM FIELD TAX AUDITOR)Only the most recent of3 resultswithin the time period is included. POC glucose 259 (H) 65 - 99 mg/dL [facility] Comment: HOSPITAL RN Notified Meter ID: [id number] Deliverer Merchandise: Kandy Hernandez Jhoana Performing Organization Address City/State/Zipcode Phone Number [facility] DEPARTMENT OF PATHOLOGY [address] [place] [address] AND [facility] [address] [place] [address] HOSPITAL ECG 12 lead (06/12/2018 4:25 PM FIELD TAX AUDITOR) Ventricular rate 93 [facility] Atrial rate 93 [facility] OH interval 198 [facility] QRSD interval 70 [facility] QT interval 322 [facility] QTC interval 400 [facility] P axis 1 41 [facility] QRS axis 1 61 [facility] T wave axis 5 [facility] EKG impression Demand pacemaker, interpretation is based on [facility] intrinsic rhythm-Sinus rhythm-No previous ECGs available- Narrative Performed At Performing Organization Address City/[facility]/Zipcode Phone Number [facility] [address] [place] [address] CT Renal Stone Protocol (06/12/2018 3:02 PM FIELD TAX AUDITOR) Narrative Performed At EXAMINATION:CT RENAL STONE PROTOCOL [...] 3 mm urolith at the left UVJ. [facility]-[id number] Procedure Note Hm Interface, Radiology Results Incoming - 06/12/2018 3:13 PM FIELD TAX AUDITOR EXAMINATION: CT RENAL STONE PROTOCOL CLINICAL HISTORY: [...] 3 mm urolith at the left UVJ. [facility]-[id number] Performing Organization Address City/[facility]/Zipcode Phone Number [facility] [address] [place] [address] Gram stain (06/12/2018 2:01 PM FIELD TAX AUDITOR) Gram stain result Rare WBC's [facility] No organisms seen Comment: Specimen Information Specimen Source: Urine Specimen Site: Clean catch Specimen Urine Performing Organization Address [facility] Phone Number [facility] DEPARTMENT OF PATHOLOGY AND [address] [place] [phone] Urine culture (06/12/2018 2:01 PM FIELD TAX AUDITOR) Urine culture isolate No growth after [address] [facility] Comment: Specimen Information Specimen Source: Urine Specimen Site: Clean catch Specimen Urine Performing Organization Address [facility]/Zipcode Phone Number [facility] DEPARTMENT OF PATHOLOGY AND [address] [place] [phone] Arterial blood gas (06/12/2018 1:45 PM FIELD TAX AUDITOR) pH, arterial 7.41 7.35 - 7.45 [facility] pCO2, arterial 37 35 - 45 mmHg [facility] pO2, arterial 93 (H) 80 - 90 mmHg [facility] Bicarbonate, arterial 22.9 21.0 - 28.0 mmol/L [facility] Base excess, arterial -1 -2 - 2 mEq/L [facility] O2 saturation, arterial 95 95 - 100 % [facility] Specimen Blood Performing Organization Address City/[facility]/Zipcode Phone Number [facility] DEPARTMENT OF PATHOLOGY [address] [place] [address] Urinalysis screen and microscopy, with reflex to culture (06/12/2018 1:30 PM FIELD TAX AUDITOR) Specimen site Clean catch [facility] Color, UA Yellow [facility] Appearance, UA Clear [facility] Specific gravity, UA 1.023 1.001 - 1.030 [facility] pH, UA 5.0 5.0 - 9.0 [facility] Protein, UA Negative Negative [facility] Glucose, UA 3+ (A) Negative [facility] Ketones, UA Trace (A) Negative [facility] Bilirubin, UA Negative Negative [facility] Blood, UA Small (A) Negative [facility] Nitrite, UA Negative Negative [facility] Urobilinogen, UA <2.0 <2.0 E.U./dL [facility] Leukocyte esterase, UA Negative Negative [facility] WBC, UA 5 (H) 0 - 1 /HPF [facility] RBC, UA 3 0 - 5 /HPF [facility] Bacteria, UA Few None seen [facility] Yeast, UA None seen [facility] Yeast with pseudohyphae, UA None seen [facility] Specimen Urine Performing Organization Address City/[facility]/Zipcode Phone Number [facility] DEPARTMENT OF PATHOLOGY [address] [place] [address] Estimated GFR (06/12/2018 1:30 PM FIELD TAX AUDITOR) Estimated GFR 39 (A) mL/min/1.73 m2 [facility] Comment: [facility] CatergoryUnitsInterpretation G1 >=90 Normal or high G2 60-89Mildly decreased [id number] to moderately decreased [id number] to severely decreased G4 15-29Severely decreased G5 <15Kidney failure The eGFR was calculated using the Chronic Kidney Disease Epidemiology Collaboration (CKD-EPI) equation. Interpretation is based on recommendations of the National Kidney Foundation-Kidney Disease Outcomes Quality Initiative (NKF-KDOQI) published in 2014. Specimen Plasma specimen Performing Organization Address City/[facility]/Zipcode Phone Number [facility] DEPARTMENT OF PATHOLOGY [id number] [place] [address] Prothrombin time with INR (06/12/2018 1:30 PM FIELD TAX AUDITOR) Prothrombin time 13.7 11.5 - 14.5 sec [facility] INR 1.1 [facility] Comment: [facility] The International Normalized Ratio (INR) is a therapeutic monitoring tool for patients who are stable on oral anticoagulant therapy. An INR of 2.0-3.0 is suggested for deep vein thrombosis/pulmonary embolism. Specimen Blood Performing Organization Address [facility] Phone Number [facility] DEPARTMENT OF PATHOLOGY [id number] [place] [address] CBC with platelet and differential (06/12/2018 1:30 PM FIELD TAX AUDITOR) WBC 7.1 4.5 - 11.0 k/uL [facility] RBC 5.26 4.40 - 6.00 m/uL [facility] HGB 14.4 14.0 - 18.0 g/dL [facility] HCT 44.9 41.0 - 51.0 % [facility] MCV 85.4 82.0 - 100.0 fL [facility] MCH 27.4 27.0 - 34.0 pg [facility] MCHC 32.1 31.0 - 37.0 g/dL [facility] RDW - SD 39.2 37.0 - 55.0 fL [facility] MPV 10.7 6.9 - 11.0 fL [facility] Platelet count 269 150 - 400 K/uL [facility] Nucleated RBC 0.00 /100 WBC [facility] Neutrophils 56.5 39.0 - 69.0 % [facility] Lymphocytes 34.1 25.0 - 45.0 % [facility] Monocytes 8.7 0.0 - 10.0 % [facility] Eosinophils 0.3 0.0 - 5.0 % [facility] Basophils 0.3 0.0 - 1.0 % [facility] Immature granulocytes 0.1 0.0 - 1.0 % [facility] Specimen Blood Performing Organization Address City/State/Zipcode Phone Number [facility] DEPARTMENT OF PATHOLOGY [address] [place] [address] AND [facility] [address] Comprehensive metabolic panel (06/12/2018 1:30 PM FIELD TAX AUDITOR) Sodium 130 (L) 135 - 148 mEq/L [facility] Potassium 4.8 3.5 - 5.0 mEq/L [facility] Chloride 92 (L) 98 - 112 mEq/L [facility] CO2 27 24 - 31 mEq/L [facility] Anion gap 11@ANIO 7 - 15 mEq/L [facility] BUN 30 (H) 6 - 20 mg/dL [facility] Creatinine 2.26 (H) 0.70 - 1.20 mg/dL [facility] Glucose 431 (HH)Comment: Called 65 - 99 mg/dL [facility] result with readback to [facility] Mary Gaitan/DAMIEN 06/12/2018 14:12 Calcium 9.5 8.3 - 10.2 mg/dL [facility] Protein 8.4 (H) 6.3 - 8.3 g/dL [facility] Albumin 3.7 3.5 - 5.0 g/dL [facility] A/G ratio 0.8 0.7 - 3.8 [facility] Alkaline phosphatase 81 40 - 129 U/L [facility] AST 15 10 - 50 U/L [facility] ALT 14 5 - 50 U/L [facility] Total bilirubin 0.6 0.2 - 1.2 mg/dL [facility] Specimen Plasma specimen Performing Organization Address City/State/Zipcode Phone Number [facility] DEPARTMENT OF PATHOLOGY [address] [place] [address] AND [facility] [address] [place] [address] HOSPITAL ECG ED Preliminary Interpretation - Not an Order (06/12/2018 1:20 PM FIELD TAX AUDITOR) Narrative Performed At Den Rubio MD 06/12/20188:50 PM ECG ED Preliminary Interpretation - Not an Order Performed by: Den Rubio MD Authorized by: Den Rubio MD ECG reviewed by ED Physician in the absence of a vault cashier: yes Previous ECG: Previous ECG:Unavailable Interpretation: Interpretation: non-specific Rate: ECG rate:93 ECG rate assessment: normal Rhythm: Rhythm: sinus rhythm Ectopy: Ectopy: none QRS: QRS axis:Normal QRS intervals:Normal Conduction: Conduction: abnormal ST segments: ST segments:Non-specific T waves: T waves: non-specific and inverted Inverted:III and aVF Comments: Normal sinus rhythm, nonspecific ST-T changes after 07/12/2017 Insurance Payer Benefit Plan / Group Subscriber ID Type Phone Address BCBS BCBS CHOICE PPO/[employer] PPO xxxxxxxxxxxx PPO (Home) [place] [address] Advance Directives Patient has advance care planning documents on file. For more information, please contact:[facility] [place] [address]
--- NOTE | 2018-07-13 13:46 | RAD REPORT ---
EXAM DESCRIPTION: RAD - Foot Left 3 View - 07/13/2018 11:55 am CLINICAL HISTORY: Left foot pain, swelling, diabetes COMPARISON: None. FINDINGS: No acute fracture changes confirmed. There is no dislocation or periosteal reaction. No ly tic, sclerotic or expansile destructive process. Patient has moderate plantar spur and large spurring at the Achilles attachment. There is irregular bone density along the lateral base fifth metatarsal. This may be sequela of old tendon or bony injury. Correlation is needed with any point tenderness at the base of the fifth metatarsal. No air or foreign body in the soft tissues. IMPRESSION: Irregular bone density lateral base fifth metatarsal. This may be the sequela of an old bone or tendon injury. Correlation is needed with any point tenderness at the base of the fifth metat arsal. Moderate plantar and large Achilles spurs. No bone destructive process seen.
--- NOTE | 2018-07-13 14:10 | ER ---
Nurse's Notes [facility] Name: Duane Warren Age: 48 yrs Sex: Male : 1970 Arrival Date: 07/13/2018 Time: 11:13 Bed 15 Private MD: Diagnosis: Nondisplaced fracture of fifth metatarsal bone, left foot Presentation: 07/13 11:15 Presenting complaint: Patient states: I was recently dx DM and I have been having left la1 foot pain and swelling for about two weeks. Transition of care: patient was not received from another setting of care. Onset of symptoms was July 13, 2018. Risk Assessment: Do you want to hurt yourself or someone else? Patient reports no desire to harm self or others. Initial Sepsis Screen: Does the patient meet any 2 criteria? No. Patient's initial sepsis screen is negative. Does the patient have a suspected source of infection? No. Patient's initial sepsis screen is negative. Care prior to arrival: None. 11:15 Method Of Arrival: Wheelchair la1 11:15 Acuity: JULIA 3 la1 Triage Assessment: 11:24 General: Appears in no apparent distress. comfortable, obese, Behavior is calm, bp cooperative, appropriate for age. Pain: Complains of pain in right foot and left foot. Historical: - Allergies: 11:18 No Known Allergies; la1 - Home Meds: 11:18 Trulicity subcutaneous subcutaneous [Active]; glipizide 10 mg Oral tab 1 tab once daily la1 [Active]; pioglitazone 45 mg oral tab 1 tab once daily [Active]; allopurinol 100 mg Oral tab 1 tab once daily [Active]; - PMHx: 11:18 Diabetes - NIDDM; Hypertension; la1 - Immunization history:: Adult Immunizations up to date. - Social history:: Smoking status: Patient/guardian denies using tobacco. - Ebola Screening: : No symptoms or risks identified at this time. Screenin:33 Abuse screen: Denies threats or abuse. Denies injuries from another. Nutritional bp screening: No deficits noted. Tuberculosis screening: No symptoms or risk factors identified. Fall Risk None identified. Assessment: 11:26 General: Appears in no apparent distress. uncomfortable, obese, Behavior is calm, bp cooperative, appropriate for age, SEE TRIAGE NOTE. Pain: Complains of pain in left foot and right foot. Neuro: Level of Consciousness is awake, alert, obeys commands, Oriented to person, place, time, situation, Appropriate for age. Cardiovascular: No deficits noted. Respiratory: Airway is patent. GI: No signs and/or symptoms were reported involving the gastrointestinal system. : No signs and/or symptoms were reported regarding the genitourinary system. EENT: No deficits noted. Derm: No deficits noted. Musculoskeletal: Circulation, motion, and sensation intact. Range of motion: intact in all extremities. 13:00 Reassessment: ALL CURRENT ORDERS COMPLETED, RAD RESULTS PENDING. bp 14:37 Reassessment: PT D/C HOME VIA W/C WITH FAMILY, DX WITH NON-DISPLACED FX OF 5TH bp METATARSAL. Vital Signs: 11:18 BP 168 / 72; Pulse 89; Resp 18; Temp 97.5; Pulse Ox 100% on R/A; Weight 163.29 kg; la1 Height 5 ft. 9 in. (175.26 cm); Pain 10/10; 13:11 BP 154 / 88; Pulse 73; Resp 20; Pulse Ox 99% on R/A; mh5 14:36 BP 167 / 78; Pulse 75; Resp 16; Pulse Ox 99% ; bp 11:18 Body Mass Index 53.16 (163.29 kg, 175.26 cm) la1 ED Course: 11:13 Patient arrived in ED. as 11:16 Triage completed. la1 11:19 Arm band placed on left wrist. la1 11:22 Nirav Negrete MD is Attending Physician. gs 11:23 John Rea, TANYA is Primary Nurse. bp 11:33 Patient has correct armband on for positive identification. Bed in low position. Call bp light in reach. Side rails up X2. Adult w/ patient. 11:55 Foot Left 3 View XRAY In Process Unspecified. EDMS 11:55 Inserted saline lock: 20 gauge in right antecubital area, using aseptic technique. bp Blood collected. 14:07 Duane Kruse MD is Referral Physician. gs 14:38 No provider procedures requiring assistance completed. Patient did not have IV access bp during this emergency room visit. Administered Medications: No medications were administered Outcome: 14:09 Discharge ordered by . gs 14:39 Discharged to home via wheelchair, with family. bp 14:39 Condition: stable 14:39 Discharge instructions given to patient, Instructed on discharge instructions, follow up and referral plans. medication usage, Demonstrated understanding of instructions, follow-up care, medications, Prescriptions given X 1. 14:39 Patient left the ED. bp Signatures: Dispatcher [employer] Marie Velez Lee, RN RN la1 Lakeshia Rosenthal 5 Nirav Negrete MD MD gs Peltier, Brian, RN RN bp
--- NOTE | 2018-07-13 14:10 | EDPHYS ---
Physician Documentation [facility] Name: Duane Warren Age: 48 yrs Sex: Male : 1970 Arrival Date: 07/13/2018 Time: 11:13 Bed 15 Private MD: ED Physician Nirav Negrete HPI: 07/13 15:53 This 48 yrs old Black Male presents to ER via Wheelchair with complaints of Feet gs Swelling Pain. 15:53 The patient presents with pain. The complaints affect the left foot, lateral side of gs left foot. Onset: The symptoms/episode began/occurred 1 week(s) ago. Modifying factors: The symptoms are alleviated by nothing, the symptoms are aggravated by weight bearing. Associated signs and symptoms: Pertinent negatives: fever, numbness, warmth. Severity of symptoms: At their worst the symptoms were moderate, in the emergency department the symptoms are unchanged. The patient has not experienced similar symptoms in the past. Historical: - Allergies: 11:18 No Known Allergies; la1 - Home Meds: 11:18 Trulicity subcutaneous subcutaneous [Active]; glipizide 10 mg Oral tab 1 tab once daily la1 [Active]; pioglitazone 45 mg oral tab 1 tab once daily [Active]; allopurinol 100 mg Oral tab 1 tab once daily [Active]; - PMHx: 11:18 Diabetes - NIDDM; Hypertension; la1 - Immunization history:: Adult Immunizations up to date. - Social history:: Smoking status: Patient/guardian denies using tobacco. - Ebola Screening: : No symptoms or risks identified at this time. ROS: 15:53 All other systems are negative. gs Exam: 15:53 ENT: Nares patent. No nasal discharge, no septal abnormalities noted. Tympanic gs membranes are normal and external auditory canals are clear. Oropharynx with no redness, swelling, or masses, exudates, or evidence of obstruction, uvula midline. Mucous membranes moist. Cardiovascular: Regular rate and rhythm with a normal S1 and S2. No gallops, murmurs, or rubs. Normal PMI, no JVD. No pulse deficits. Respiratory: Lungs have equal breath sounds bilaterally, clear to auscultation and percussion. No rales, rhonchi or wheezes noted. No increased work of breathing, no retractions or nasal flaring. Abdomen/GI: Soft, non-tender, with normal bowel sounds. No distension or tympany. No guarding or rebound. No evidence of tenderness throughout. Back: No spinal tenderness. No costovertebral tenderness. Full range of motion. Skin: Warm, dry with normal turgor. Normal color with no rashes, no lesions, and no evidence of cellulitis. Neuro: Awake and alert, GCS 15, oriented to person, place, time, and situation. Cranial nerves II-XII grossly intact. Motor strength 5/5 in all extremities. Sensory grossly intact. Cerebellar exam normal. Normal gait. 15:53 Constitutional: The patient appears alert, awake. 15:53 Musculoskeletal/extremity: Extremities: noted in the lateral side of left foot: swelling, tenderness, ROM: no acute changes, Pulses: are normal with no appreciated deficits, Sensation intact. Vital Signs: 11:18 BP 168 / 72; Pulse 89; Resp 18; Temp 97.5; Pulse Ox 100% on R/A; Weight 163.29 kg; la1 Height 5 ft. 9 in. (175.26 cm); Pain 10/10; 13:11 BP 154 / 88; Pulse 73; Resp 20; Pulse Ox 99% on R/A; mh5 14:36 BP 167 / 78; Pulse 75; Resp 16; Pulse Ox 99% ; bp 11:18 Body Mass Index 53.16 (163.29 kg, 175.26 cm) la1 MDM: 11:37 Patient medically screened. gs 15:53 Differential diagnosis: fracture, sprain, arthritis, gout. Data reviewed: vital signs, gs nurses notes. Counseling: I had a detailed discussion with the patient and/or guardian regarding: the historical points, exam findings, and any diagnostic results supporting the discharge/admit diagnosis, radiology results, the need for outpatient follow up, a orthopedic surgeon. Response to treatment: the patient's symptoms have mildly improved after treatment, and as a result, I will discharge patient. 07/13 11:37 Order name: Uric Acid; Complete Time: 12:23 gs 07/13 11:37 Order name: Foot Left 3 View XRAY; Complete Time: 14:06 gs Administered Medications: No medications were administered Disposition: 07/13/18 14:09 Discharged to Home. Impression: Nondisplaced fracture of fifth metatarsal bone, left foot. - Condition is Stable. - Discharge Instructions: Avulsion Fracture of the Foot. - Prescriptions for Tylenol- Codeine #4 300-60 mg Oral Tablet - take 1 tablet by ORAL route every 12 hours As needed; 10 tablet. - Medication Reconciliation Form, Thank You Letter, Antibiotic Education, Prescription Opioid Use form. - Follow up: Duane Kruse MD; When: 2 - 3 days; Reason: Re-evaluation by your physician. Signatures: Dispatcher [employer] EDMS Ebeenzer Ryan RN RN la1 Nirav Negrete MD MD gs Peltier, Brian, RN RN bp Corrections: (The following items were deleted from the chart) 14:20 14:11 Ortho shoe ordered. mh5 14:39 14:09 07/13/2018 14:09 Discharged to Home. Impression: Nondisplaced fracture of fifth bp metatarsal bone, left foot. Condition is Stable. Forms are Medication Reconciliation Form, Thank You Letter, Antibiotic Education, Prescription Opioid Use. Follow up: Duane Kruse; When: 2 - 3 days; Reason: Re-evaluation by your physician.
== END 2018-07-13 14:39 | disposition home or self-care (01) ==
LOC: ER 11:09
DX: S92.355A Nondisplaced fracture of fifth metatarsal bone, left foot, initial encounter for closed fracture (principal); X58.XXXA Exposure to other specified factors, initial encounter; Y93.9 Activity, unspecified; Y92.9 Unspecified place or not applicable; Z79.4 Long term (current) use of insulin; I10 Essential (primary) hypertension; E11.9 Type 2 diabetes mellitus without complications
CPT/HCPCS: 36415; 84550; 99284